=== PATIENT | male | born 1985 | race Caucasian/White ===

== ENCOUNTER 2018-10-22 16:20 | Emergency (ER) | payer OTHER, SELFPAY ==
[2018-10-22] VITALS (9 sets, daily range): BP systolic 130–144; BP diastolic 63–92; PULSE 70–86; RESP 15–16; TEMP 37.1; O2SAT 96–99
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
[2018-10-22] MEDS: Normal Saline 1,000 ML 1000 ML IV (16:38)
[2018-10-22 16:50] LABS: Abs Immature Grans 0.01 k/cumm (0.0-0.09); Absolute Basophil Count 0.01 k/cumm (0.0-0.2); Absolute Eosinophil Count 0.03 k/cumm (0.0-0.7); Absolute Lymphocyte Count 1.79 k/cumm (1.2-3.4); Absolute Neutrophil Count 4.38 k/cumm (1.2-6.7); Basophils % 0.1; Eosinophils % 0.4; HCT 43.2 % (40.0-50.0); HGB 15.3 g/dL (13.5-17.5); Immature Grans % 0.1; Lymphocytes % 25.9; Mean Corp. HGB Concentration 35.4 g/dL (32.0-36.0); Mean Corpuscular Hemoglobin 30.8 pg (27.0-33.0); Mean Corpuscular Volume 87.1 fL (80-95); Mean Platelet Volume 11.3 fL (8.0-11.0); Monocytes % 10.1; Neutrophils % 63.4; Platelet Count 228 x1000/uL (130-400); RBC 4.96 m/cumm (4.50-6.00); White Blood Cell Count 6.92 k/cumm (4.4-10.8)
[2018-10-22 17:07] LABS: ALT 33 U/L (12-78); AST 20 U/L (15-37); Alkaline Phosphatase 48 U/L (46-116); Anion Gap 9.5 mmol/L (3-11); BUN 15 mg/dL (7-18); Bilirubin, Total 0.4 mg/dL (0.2-1.0); CO2 26.5 mmol/L (21.0-32.0); CREATININE 1.13 mg/dL (0.70-1.30); Chloride 104 mmol/L (98-107); Glucose 107 mg/dL (70-100); Magnesium 1.9 mg/dL (1.8-2.4); Potassium 3.9 mmol/L (3.5-5.1); Sodium 140 mmol/L (136-145); Total Protein 7.2 g/dL (6.4-8.2)
[2018-10-22 17:14] LABS: Troponin I < 0.05 ng/mL (0.00-0.06)
[2018-10-22] MEDS: Omnipaque 350 MG/ML 100 ML BTL IV (17:44)
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
== END 2018-10-22 18:38 | disposition home or self-care (01) ==
PROVIDERS: Emergency Provider Physician Assistant
DX: R51 Headache (principal); S50.312A Abrasion of left elbow, initial encounter; M54.6 Pain in thoracic spine; M54.5 Low back pain; V28.4XXA Motorcycle driver injured in noncollision transport accident in traffic accident, initial encounter
CPT/HCPCS: 36415; 74177; 80053; 99285; 70450; 71260; 72125; 83735; 84484; 85025; 99284; J3490